=== PATIENT | male | born 1965 | race Caucasian/White ===

== ENCOUNTER → 2019-01-26 | Outpatient (CLI) | payer BC ==
--- NOTE | 2019-01-26 15:28 | RAD ---
EXAM DESCRIPTION: Ribs,Right 3 Views CLINICAL HISTORY: INTERCOSTAL PAIN. Right rib pain. Fall. COMPARISON: None Available. TECHNIQUE: Frontal views of the right ribs. FINDINGS: No acute displaced right rib fracture or dislocation. The visualized right lung is clear. Small benign-appearing chondroid lesion within the right proximal humerus. Degenerative changes of the spine. IMPRESSION: 1. No acute displaced right rib fracture. Electronically signed by: Frandy Diaz DO 01/26/2019 3:26 PM CDT
== END ==
LOC: RAD 14:36
PROVIDERS: ATTEND Nurse Practitioner Family
DX: R07.82 Intercostal pain (principal)